=== PATIENT | male | born 1960 | race African-American/Black ===

== ENCOUNTER 2022-08-18 13:03 | Inpatient (IN) | payer OTHER ==
[2022-08-18 13:18] VITALS: BMI 20.9
[2022-08-18] MEDS ORDERED: MAG HYDROX/AL HYDROX/SIMETH 30 ML UNIT-DOSE CUP PO PRN (17:13)
[2022-08-18] MEDS ORDERED: NICOTINE 10 MG CARTRIDGE (INHALER) IH PRN (17:13)
[2022-08-18] MEDS ORDERED: BISMUTH SUBSALICYLATE 524 MG/30 ML PO PRN (17:13)
[2022-08-18] MEDS ORDERED: BENZONATATE 200 MG CAPSULE PO PRN (17:13)
[2022-08-18] MEDS ORDERED: P-EPHED 60MG/TRIPROLIDI 2.5MG TABLET PO PRN (17:13)
[2022-08-18] MEDS ORDERED: LOPERAMIDE HCL 2 MG CAPSULE PO PRN (17:13)
[2022-08-18] MEDS ORDERED: diazePAM 5 MG TABLET PO PRN (17:13)
[2022-08-18] MEDS ORDERED: guaiFENesin 600 MG TABLET.ER (FP) PO PRN (17:13)
[2022-08-18] MEDS ORDERED: MAGNESIUM HYDROX 2400MG/30ML ORAL SUSPENSION 30 ML CUP PO PRN (17:13)
[2022-08-18] MEDS ORDERED: DICYCLOMINE HCL 10 MG CAPSULE PO PRN (17:13)
[2022-08-18] MEDS ORDERED: ACETAMINOPHEN 325 MG TABLET (FP) PO PRN (17:13)
[2022-08-18] MEDS ORDERED: POLYETHYLENE GLYCOL (HEALTHYLAX) 3350 17 GM PACKET PO PRN (17:13)
[2022-08-18] MEDS ORDERED: NALOXONE HCL 0.4 MG/ML VIAL IM PRN (17:13)
[2022-08-18] MEDS ORDERED: BENZOCAINE/MENTHOL (CHLORASEPTIC ) LOZENGE MM PRN (17:13)
[2022-08-18] MEDS ORDERED: NALOXONE HCL (KLOXXADO) 8 MG SPRAY NS PRN (17:13)
[2022-08-18] MEDS ORDERED: methaDONE HCL 10 MG TABLET (FOR DETOX USE ONLY) ONE (17:55)
[2022-08-18] MEDS ORDERED: methaDONE HCL 10 MG TABLET (FOR DETOX USE ONLY) PO ONE (18:00)
[2022-08-18] MEDS: cloNIDine HCL 0.1 MG TABLET PO PRN (18:37)
[2022-08-18] MEDS: NICOTINE POLACRILEX 2 MG GUM BUC PRN (18:39)
[2022-08-18] MEDS: traZODone HCL 50 MG TABLET (FP) PO ONE (22:04)
[2022-08-18] MEDS: THIAMINE HCL 100 MG TABLET (FP) PO SCH (22:06)
[2022-08-18] MEDS: MELATONIN 5 MG TABLETS PO SCH (22:07)
[2022-08-18] MEDS: diazePAM 5 MG TABLET PO SCH (22:29)
[2022-08-19] MEDS: diazePAM 5 MG TABLET PO SCH ×4 (05:54→22:26)
[2022-08-19] MEDS: IBUPROFEN 600 MG TABLET (FP) PO PRN ×2 (05:57→12:35)
[2022-08-19] MEDS: METHOCARBAMOL 500 MG TABLET PO PRN ×2 (06:23→20:28)
[2022-08-19] MEDS: NICOTINE POLACRILEX 2 MG GUM BUC PRN ×3 (06:23→17:25)
[2022-08-19] MEDS: PRENATAL VITAMINS W/ FOLIC ACID TABLET (FP) PO SCH (10:20)
[2022-08-19 10:55] LABS: POTASSIUM 3.9 mmol/L (3.5-5.1)
[2022-08-19 11:01] LABS: HEMOGLOBIN 11.2 GM/dL (11.7-16.9); MCHC 33.1 g/dl (32.0-35.9); MEAN CELL VOLUME 87.7 fl (80-96); MEAN PLT VOLUME 8.5 fl (7.5-11.1); PLATELET COUNT 175 10^3/uL (134-434); RBC 3.88 M/mm3 (4.00-5.60); RDW 15.7 % (11.9-15.9); WHITE BLOOD COUNT 4.6 K/mm3 (4.0-10.0)
[2022-08-19 11:09] LABS: ALBUMIN 3.4 g/dl (3.4-5.0); BLOOD UREA NITROGEN 23.7 mg/dL (7-18)
[2022-08-19 11:12] LABS: CREATININE 0.9 mg/dL (0.55-1.3)
[2022-08-19 11:14] LABS: TOT PROT 6.4 g/dl (6.4-8.2)
[2022-08-19] MEDS: IBUPROFEN 400 MG TABLET (FP) PO PRN (17:22)
[2022-08-19] MEDS: traZODone HCL 50 MG TABLET (FP) PO SCH (22:26)
[2022-08-19] MEDS: THIAMINE HCL 100 MG TABLET (FP) PO SCH (22:26)
[2022-08-19] MEDS: MELATONIN 5 MG TABLETS PO SCH (22:26)
[2022-08-19] MEDS: NAPROXEN 500 MG TABLET PO SCH (22:26)
[2022-08-20] MEDS: diazePAM 5 MG TABLET PO SCH ×3 (06:04→22:04)
[2022-08-20] MEDS: METHOCARBAMOL 500 MG TABLET PO PRN ×2 (06:04→12:04)
[2022-08-20] MEDS ORDERED: methaDONE HCL 10 MG TABLET (FOR DETOX USE ONLY) PO ONE (10:00)
[2022-08-20] MEDS: IBUPROFEN 400 MG TABLET (FP) PO PRN ×2 (10:09→17:09)
[2022-08-20] MEDS: NAPROXEN 500 MG TABLET PO SCH ×2 (10:10→22:05)
[2022-08-20] MEDS: PRENATAL VITAMINS W/ FOLIC ACID TABLET (FP) PO SCH (10:10)
[2022-08-20] MEDS: NICOTINE POLACRILEX 2 MG GUM BUC PRN ×3 (12:01→21:07)
[2022-08-20] MEDS: cloNIDine HCL 0.1 MG TABLET PO PRN (12:04)
[2022-08-20] MEDS: THIAMINE HCL 100 MG TABLET (FP) PO SCH (22:04)
[2022-08-20] MEDS: traZODone HCL 50 MG TABLET (FP) PO SCH (22:05)
[2022-08-20] MEDS: MELATONIN 5 MG TABLETS PO SCH (22:05)
[2022-08-21] MEDS: NICOTINE POLACRILEX 2 MG GUM BUC PRN ×3 (05:52→13:34)
[2022-08-21] MEDS ORDERED: diazePAM 5 MG TABLET PO SCH (06:00)
[2022-08-21] MEDS ORDERED: COLLOIDAL OATMEAL 1 BAR EACH TP PRN (09:00)
[2022-08-21 09:36] VITALS: RESP 18
[2022-08-21] MEDS ORDERED: VITAMINS A AND D TOPICAL OINTMENT 60 GM TUBE TP SCH (10:00)
[2022-08-21] MEDS: PRENATAL VITAMINS W/ FOLIC ACID TABLET (FP) PO SCH (10:21)
[2022-08-21] MEDS: NAPROXEN 500 MG TABLET PO SCH (10:22)
[2022-08-21] MEDS: METHOCARBAMOL 500 MG TABLET PO PRN (10:24)
[2022-08-21] MEDS: IBUPROFEN 400 MG TABLET (FP) PO PRN (10:25)
[2022-08-21 13:30] VITALS: BP 132/78; PULSE 87; TEMP 98
[2022-08-22] MEDS ORDERED: diazePAM 5 MG TABLET PO ONE (06:00)
[2022-08-22] MEDS ORDERED: methaDONE HCL 10 MG TABLET (FOR DETOX USE ONLY) PO ONE (10:00)
== END 2022-08-21 15:55 | disposition home or self-care (01) | DRG 773 ==
LOC: YASAS 13:03 → Y6N 17:58
PROVIDERS: ADMIT Allergy & Immunology; ATTEND Surgery
PROC: HZ2ZZZZ Detoxification Services for Substance Abuse Treatment (ICD-10-PCS; principal; 2022-08-18)
DX: F11.23 Opioid dependence with withdrawal (principal); F10.230 Alcohol dependence with withdrawal, uncomplicated; F17.210 Nicotine dependence, cigarettes, uncomplicated; F32.A Depression, unspecified; G47.00 Insomnia, unspecified; B18.2 Chronic viral hepatitis C; M17.0 Bilateral primary osteoarthritis of knee; Z88.2 Allergy status to sulfonamides
CPT/HCPCS: 36415; 80053; 85027; 86780; 87635; 87811